=== PATIENT | male | born 1975 | race Caucasian/White ===

== ENCOUNTER 2025-02-21 19:55 | Emergency (ER) | payer OTHER, SELFPAY ==
--- OUTSIDE RECORDS SUMMARY | 2025-02-21 19:56 | XMS_ITS | Clinical Summary ---
Author Organization [facility] Address [address] [place] [id number] Care Team Providers Care Water Project Manager Name Role Phone Pcp, No Primary Care Provider Unavailabl e Allergies Active Allergy Reactions Criticality Noted Date Comments Shellfish Derived Vomiting 08/14/2017 Medications metroNIDAZOLE 0.75 % creamIndication s:Rosacea Apply topically to affected area(s) 2 times daily. 45 g 7 Active Active Problems No known active problems Immunizations Immunization Administration Dates Next Due HepA-HepB (Twinrix) 02/12/2015,08/04/2014,201307/24/2014 Tdap 07/29/2007 Family History Medical History Relation Name Comments Cancer Paternal Grandmother unknown Relation Name Status Comments Paternal Grandmother Social History Tobacco Use Types Packs/Day Years Used Date Smoking Tobacco: Never Smokeless Tobacco: Never Tobacco Cessation:Counseling Given: No Alcohol Use Standard Drinks/Week Comments Yes 1.7 (1 standard drink = 0.6 oz p ure alcohol) Sex and Gender Information Value Date Recorded Sex Assigned at Not on file 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 Gender Identity Not on file Sexual Orientation Not on file 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 Not on file Not on file Not on file Obstetrics History Last Filed Vital Signs Vital Sign Reading Time Taken Comments Blood Pressure 139/83 08/21/2017 3:12 PM SPA ASSISTANT MANAGER Pulse 57 08/21/2017 3:12 PM SPA ASSISTANT MANAGER Temperature 36.6 C (97.9 F) 08/14/2017 2:06 PM SPA ASSISTANT MANAGER Respiratory Rate - - Oxygen Saturation 96% 08/21/2017 3:12 PM SPA ASSISTANT MANAGER Inhaled Oxygen Concentration - - Weight 85.4 kg (188 lb 3.2 oz) 08/21/2017 3:12 P M SPA ASSISTANT MANAGER Height 177.5 cm (5' 9.88) 08/14/2017 2:06 PM CS T Body Mass Index 27.1 08/14/2017 2:06 PM SPA ASSISTANT MANAGER Plan of Treatment Health Maintenance Due Date Last Done Comments Depression screening for age 12+ 1987 HIV for age 15-65 1990 Hepatitis C screening for age 18-79 1993 Tetanus booster 07/29/2017 07/29/2007 BMI (ht and wt on same day) for age 18+ 08/14/2018 08/14/2017 Colonoscopy through age 75 02/12/2020 Lipids for age 45-75 02/12/2020 COVID-19 vaccine series (1 - 2023- season) 2024 Pneumococcal series for age 50+ (1 of 1 - PCV) 2025 Zoster (shingles) series for age 50+ (1 of 2) 2025 Influenza Vaccine (Season Ended) 2025 (IA) Tdap Completed 07/29/2007 Hepatitis B series for 19+ Completed 02/12, 08/04/2014, 06/23/2014 Insurance [facility] NON-[facility] [employer] Care Teams Water Project Manager Relationship Specialty Start Date End Date Pcp, No . PCP - General 12/07/10
[2025-02-21 20:05] VITALS: BP 127/74; PULSE 52; RESP 16; TEMP 36.7; O2SAT 98; BMI 25.8
--- NOTE | 2025-02-21 20:39 | ED.GENADULT ---
HPI - General Adult General Time Seen by Provider: 20:39 Date Seen: 02/21/25 Chief complaint: Urogenital Problems, Male Stated complaint: pain in pelvic area Time Seen by Provider: 02/21/25 20:39 Source: patient, family, RN notes reviewed and old records reviewed Mode of arrival: ambulatory Limitations: no limitations History of Present Illness HPI narrative: 50-year-old male who comes in today with abdominal pain and pelvic pain. Patient notes last week use playing baseball and felt a little pull in the right groin just. Next to the testicle. Was playing baseball again tonight and had immediate worsening pain. No urinary symptoms, no bowel about discomfort. Does have a little bit of nausea. Took some Tylenol earlier prior to his game preventatively, did have a couple beers tonight. Related Data Home Medications ?Medication ?Instructions ?Recorded ?Confirmed No Known Home Medications 02/21/25 02/21/25 Allergies Allergy/AdvReac Type Severity Reaction Status Date / Time shellfish derived AdvReac Severe Anaphylaxis Verified 02/21/25 20:25 [facility] Surgical History (Updated 02/21/25 @ 20:39 by Toya Dubois RN) H/O vasectomy ?Z98.52 - Vasectomy status (ICD-10) Social History Smoking Status: Never smoker Do you use any of these nicotine containing products: None Second hand tobacco smoke exposure: No Non-prescribed substance use: denies use service: No Exam Narrative: Exam Narrative: General: Well-developed and well-nourished, no acute distress Head: Atraumatic and normocephalic Eyes: Pupils are equal reactive, extraocular motions intact, conjunctiva clear ENT: External nose and ears are normal, posterior pharynx without erythema or exudate Neck: No midline cervical tenderness, full spontaneous range of motion the neck, trachea midline, no adenopathy Heart: Regular rate and rhythm no murmurs or thrills Lungs: Clear to auscultation bilaterally without wheezes or crackles Abdomen: Soft, nontender, nondistended with active bowel sounds Musculoskeletal: No tenderness, deformity, or edema Neurologic: Awake, alert, and oriented x3, no gross focal neurologic deficits, cranial nerves intact as tested Psych: Mood and affect are appropriate Skin: No rashes Const: Vital Signs, click to edit/add: Vital Signs - 24 hr 02/21/25 20:05 Temperature 98.1 F Pulse Rate [Right Pulse Oximeter] 52 L Respiratory Rate 16 Blood Pressure [Ri ght Upper Arm] 127/74 Pulse Oximetry 98 Oxygen Delivery Me thod Room Air Course Course ED Course: No prior records available for review. Patient presents today with right pelvic and right groin pain after injury playing baseball. He reports he injured this last week and re-injured it today. On exam, vital is stable, no abdominal tenderness, marked tenderness of the right inguinal area with no swelling. Labs and CT scan ordered along with Annika and Abby. Reevaluation(s) Time of Reevaluation #1: 21:19 Reevaluation #1: Labs independently interpreted by me with normal CBC. CT scan independently interpreted by me with some inflammatory changes in the right inguinal canal. Time of Reevaluation #2: 21:51 Reevaluation #2: Reviewed radiology interpretation of CT which is negative, our on my review there is some inflammatory changes right area patient's pain. This likely represents abdominal wall strain. Mild pain with resisted adduction and flexion of the hip. Discussed treatment for this, ice, rest. Patient will be discharged with crutches, oxycodone, and stable for discharge Vital Signs Vital signs: Initial Vital Signs Temperature 98.1 F 02/21/25 20:05 Temperature Source Temporal Artery Scan 02/21/25 20:05 Pulse Rate 52 L 02/21/25 20:05 Pulse Rhythm Regular 02/21/25 20:05 Pulse Strength 3+ Normal 02/21/25 20:05 Respiratory Rate 16 02/21/25 20:05 Blood Pressure 127/74 02/21/25 20:05 Blood Pressure Mean 91 02/21/25 20:05 Blood Pressure Position Sitting 02/21/25 20:05 Pulse Oximetry 98 02/21/25 20:05 Oxygen Delivery Method Room Air 02/21/25 20:05 Vital Signs Temperature 98.1 F 02/21/25 20:05 Pulse Rate 52 L 02/21/25 20:05 Respiratory Rate 16 02/21/25 20:05 Blood Pressure 127/74 02/21/25 20:05 Pulse Oximetry 98 02/21/25 20:05 Oxygen Delivery Method Room Air 02/21/25 20:05 Temperature 98.1 F 02/21/25 20:05 Pulse Rate 52 L 02/21/25 20:05 Respiratory Rate 16 02/21/25 20:05 Blood Pressure 127/74 02/21/25 20:05 Pulse Oximetry 98 02/21/25 20:05 Oxygen Delivery Method Room Air 02/21/25 20:05 Medications Administered Medications: Generic Name Dose Route Start Last Admin Trade Name Maya PRN Reason Stop Dose Admin Hydromorphone HCl 0.5 mg 02/21/25 20:50 02/21/25 21:08 Hydromorphone 0.5 Mg/0.5 Ml Inj IVP 02/21/25 20:51 0.5 mg ONCE ONE Administration Hydromorphone HCl 0.5 mg 02/21/25 21:20 02/21/25 21:38 Hydromorphone 0.5 Mg/0.5 Ml Inj IVP 02/21/25 21:21 0.5 mg ONCE ONE Administration Ondansetron HCl 4 mg 02/21/25 20:50 02/21/25 21:08 Ondansetron 2 Mg/Ml Inj IVP 02/21/25 20:51 4 mg ONCE ONE Administration Medical Decision Making Lab Data Labs: Lab Results 02/21/25 Range/Units 20:05 WBC 6.06 (4.50-11.00) K/uL RBC 4.32 (4.30-5.90) m/uL Hgb 13.3 L (13.5-17.5) gm/dL Hct 38.8 (37.0-53.0) % MCV 90 (80-100) fL MCH 31 (26-34) pg MCHC 34 (32-36) gm/dL RDW Coeff of Triston 11.8 (11.5-15.5) % Plt Count 298 (140-440) K/uL Neut % (Auto) 59.0 (42.0-72.0) % Lymph % (Auto) 30.9 (20-44) % [place] % (Auto) 7.3 (0.0-11.0) % Eos % (Auto) 2.1 (0.0-7.0) % Baso % (Auto) 0.7 (0.0-3.0) % Neut # (Auto) 3.58 (1.7-7.0) K/uL Lymph # (Auto) 1.87 (0.90-2.90) K/uL [place] # (Auto) 0.40 (0.00-0.90) K/UL Eos # (Auto) 0.13 (0.00-0.50) K/uL Baso # (Auto) 0.04 (0.00-0.30) K/uL Abs Immat Gran (auto) 0.00 (0.00-0.30) K/uL Imm/Tot Granulo (auto) 0.0 % Sodium 131 L (135-149) mmol/L Potassium 3.5 L (3.6-5.1) mmol/L Chloride 99 (96-114) mmol/L Carbon Dioxide 21 (20-32) mmol/L Anion Gap 11 (7-15) mEq/L BUN 15 (7-30) mg/dL Creatinine 1.1 (0.5-1.5) mg/dL Estimated Creat Clear 82.95 Estimated GFR 82 ml/min Glucose 116 H (60-115) mg/dL Calcium 9.2 (8.4-10.6) mg/dL Discharge Plan Discharge Clinical Impression: Groin strain Patient Disposition: Home, Self-Care Instructions: Crutch Instructions (ED), Groin Strain (ED) Additional Instructions: Take Tylenol and ibuprofen scheduled every 6 hours, take oxycodone as needed for more severe pain Activity as tolerated, weight-bearing as tolerated Activity Level: Activity as Tolerated and Weight Bearing as Tolerated Discharge Diet: Regular Prescriptions: No Action No Known Home Medications Follow Up/Referrals: Provider,Not a Local [Primary Care Provider, Family Practice] Stand Alone Forms: Work/School Release, [facility] Info Inst[facility]
--- NOTE | 2025-02-21 20:50 | CRLHL7_ITS ---
For Patients: As a result of the Cures Act, medical imaging exams and procedure reports are released immediately into your electronic medical record. You may view this report before your referring provider. If you have questions, please contact your health care provider. INDICATION: Right groin abdominal pain TECHNIQUE: CT Abdomen and pelvis with i.v. contrast. Coronal and sagittal reformats were obtained. CONTRAST: 80 mL Isovue 370 COMPARISON: None FINDINGS: Lower chest: Unremarkable. Liver: Unremarkable. Spleen: Unremarkable. Pancreas: Unremarkable. Gallbladder: Unremarkable. Kidney: Unremarkable. No kidney or ureteral stones or obstruction seen. Adrenal: Unremarkable. Bowel: The stomach, small bowel, and colon are unremarkable. The appendix is not identified. Vascular: Unremarkable. Lymph: Unremarkable. Peritoneum: Unremarkable. No pneumoperitoneum is seen. No significant ascites is noted. Pelvis: Unremarkable. Soft tissue: Unremarkable. Bone: Unremarkable for age. IMPRESSION: 1. No CT correlate for the patient`s symptoms seen. Please note that all CT scans at this facility use dose modulation, iterative reconstruction, and/or weight-based dosing when appropriate to reduce radiation dose to as low as reasonably achievable. Dictated by: Luis Richards MD @ 02/21/2025 21:35:13 (Electronically Signed)
[2025-02-21 21:02] LABS: Hematocrit 38.8 % (37.0-53.0); Hemoglobin* 13.3 gm/dL (13.5-17.5); Immature Granulocytes Abs Auto 0.00 K/uL (0.00-0.30); Immature Granulocytes Pct Auto 0.0 %; Lymphocytes Absolute Auto 1.87 K/uL (0.90-2.90); Mean Corpuscular HGB Conc 34 gm/dL (32-36); Mean Corpuscular Hemoglobin 31 pg (26-34); Mean Corpuscular Volume 90 fL (80-100); RDW Coefficient of Variation % 11.8 % (11.5-15.5); Red Blood Count 4.32 m/uL (4.30-5.90); White Blood Count* 6.06 K/uL (4.50-11.00)
[2025-02-21 21:08] LABS: Slide Review Reflex No
[2025-02-21] MEDS: ONDANSETRON 2 MG/ML inj 4 MG IVP (21:08)
[2025-02-21 21:17] LABS: Chloride* 99 mmol/L (96-114); Potassium* 3.5 mmol/L (3.6-5.1); Sodium* 131 mmol/L (135-149)
[2025-02-21 21:20] LABS: Anion Gap 11 mEq/L (7-15); Blood Urea Nitrogen* 15 mg/dL (7-30); Calcium* 9.2 mg/dL (8.4-10.6); Carbon Dioxide* 21 mmol/L (20-32); Creatinine* 1.1 mg/dL (0.5-1.5); Est. Creatinine Clearance* 82.95; Estimated Glomerular Filt Rate 82 ml/min; Glucose* 116 mg/dL (60-115)
[2025-02-21 22:18] VITALS: BP 126/76; PULSE 86; RESP 18; O2SAT 98
[2025-02-21 22:23] VITALS: BP 126/76; PULSE 76; RESP 18
== END 2025-02-21 22:25 | disposition home or self-care (01) ==
PROVIDERS: Emergency Provider Family Medicine
DX: S76.211A Strain of adductor muscle, fascia and tendon of right thigh, initial encounter (principal); Y93.64 Activity, baseball
CPT/HCPCS: 36415; 74177; 80048; 85025; 96374; 96375; 96376; 99284; 99285; J1171; J2405; Q9967